=== PATIENT | female | born 1965 | race Caucasian/White ===

== ENCOUNTER 2017-11-29 16:51 | Emergency (ER) | payer OTHER ==
[~2017-11-29] VITALS: Ht 167.6 cm; Wt 59.0 kg
== END 2017-11-29 17:27 | disposition home or self-care (01) ==
LOC: ED 16:51
DX: M25.561 Pain in right knee (principal); W01.0XXA Fall on same level from slipping, tripping and stumbling without subsequent striking against object, initial encounter